=== PATIENT | female | born 1995 | race Caucasian/White ===

== ENCOUNTER 2018-11-26 10:25 | Emergency (ER) | payer OTHER ==
[~2018-11-26] VITALS: Ht 157.5 cm; Wt 110.5 kg
[~2018-11-26 10:25] MED LIST: AFRIN NS; LEVO1TAB31 PO; PSEU-225 PO; ZOF4T PO
[2018-11-26 10:41] VITALS: BP 132/83
--- NOTE | 2018-11-26 10:49 | NUR ---
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
--- NOTE | 2018-11-26 10:59 | NUR ---
MD IN ROOM ASSESSING PT FOR TRAUMA STATUS.
--- NOTE | 2018-11-26 11:05 | NUR ---
TRAUMA CALLED OFF BY [facility]
[2018-11-26] MEDS ORDERED: METH-360 PO (11:14)
[2018-11-26] MEDS ORDERED: ketorolac tromethamine 15mg/ml inj. IM ONE (11:15)
== END 2018-11-26 11:47 | disposition home or self-care (01) ==
LOC: ER 10:25
DX: R10.84 Generalized abdominal pain (principal); M54.5 Low back pain; F12.90 Cannabis use, unspecified, uncomplicated; Z79.899 Other long term (current) drug therapy; V49.88XA Car occupant (driver) (passenger) injured in other specified transport accidents, initial encounter; Y93.89 Activity, other specified; Y92.413 State road as the place of occurrence of the external cause; Y99.9 Unspecified external cause status
CPT/HCPCS: 96372; 99283; J1885

== ENCOUNTER 2018-12-02 13:27 | Emergency (ER) | payer OTHER ==
[~2018-12-02] VITALS: Ht 157.5 cm; Wt 109.1 kg
[~2018-12-02 13:27] MED LIST changes: +METH-360 PO
[2018-12-02 13:33] VITALS: BP 149/95
[2018-12-02 15:02] LABS: URINE HCG NEGATIVE (NEG)
[2018-12-02] MEDS ORDERED: IBUP-1985 PO (15:42)
== END 2018-12-02 15:56 | disposition home or self-care (01) ==
LOC: ER 13:28
DX: F07.81 Postconcussional syndrome (principal); R07.89 Other chest pain; F12.90 Cannabis use, unspecified, uncomplicated; Z79.899 Other long term (current) drug therapy; V89.2XXA Person injured in unspecified motor-vehicle accident, traffic, initial encounter; Y93.89 Activity, other specified; Y92.89 Other specified places as the place of occurrence of the external cause; Y99.8 Other external cause status
CPT/HCPCS: 70450; 73200; 81025; 99284